=== PATIENT | male | born 1975 | race Caucasian/White ===

== ENCOUNTER 2024-08-27 06:23 | Day surgery (SDC) | payer OTHER, SELFPAY | END 2024-08-27 13:07 | disposition home or self-care (01) | LOC: GI 06:23 | PROVIDERS: ATTENDING PHYSICIAN Internal Medicine | DX: Z12.11 Encounter for screening for malignant neoplasm of colon (principal); K57.30 Diverticulosis of large intestine without perforation or abscess without bleeding; K63.5 Polyp of colon; K63.89 Other specified diseases of intestine | CPT/HCPCS: 45380; 88305 ==